=== PATIENT | female | born 1990 | race Caucasian/White ===

== ENCOUNTER 2019-07-11 15:12 | Emergency (ER) | payer OTHER, SELFPAY ==
[2019-07-11 15:19] VITALS: BP 139/91; PULSE 108; RESP 20; TEMP 36.8; O2SAT 99
--- NOTE | 2019-07-11 15:24 | ED.URI ---
HPI - URI/Sore Throat General Chief Complaint: Upper Respiratory Infection Stated Complaint: Stomach Pain,Fever Source: patient Mode of arrival: ambulatory Limitations: no limitations History of Present Illness HPI Narrative: Patient is a 29-year-old female who presents with sore throat, body aches, fever, chills, cough, congestion and mild nausea x1 day. She reports taking Tylenol with limited relief. She denies vomiting or diarrhea, chest pain or shortness of breath. MD elicited complaint: sore throat Related Data Home Medications Medication Instructions Recorded Confirmed folic acid 20 mg capsule 20 mg PO DAILY 07/04/19 07/11/19 albuterol sulfate [ProAir HFA] 2 inh INHALATION DIRECTED 07/11/19 07/11/19 ergocalciferol (vitamin D2) 1,250 mcg PO DAILY 07/11/19 07/11/19 ipratropium-albuterol 3 ml INHALATION DIRECTED 07/11/19 07/11/19 methotrexate sodium 25 mg IM WEEKLY 07/11/19 07/11/19 norgestimate-ethinyl estradiol 1 tablet PO DAILY 07/11/19 07/11/19 [Estarylla] Allergies Allergy/AdvReac Type Severity Reaction Status Date / Time hepatitis B virus vaccine Allergy Intermediate Anaphylactic Verified 07/11/19 15:38 Shock morphine AdvReac Severe Other Verified 07/08/19 08:51 Review of Systems Review of Systems: Narrative: CONSTITUTIONAL: Denies fever, chills, or sweats. EYES: Denies visual changes, redness, or discharge. ENT: Denies rhinorrhea, congestion, or otalgia. Reports sore throat CARDIOVASCULAR: Denies chest pain, palpitations, or edema. RESPIRATORY: Reports cough, denies dyspnea. GASTROINTESTINAL: Denies abdominal pain, vomiting, or diarrhea. Reports nausea GENITOURINARY: Denies dysuria or hematuria. SKIN: Denies rash or itching. MUSCULOSKELETAL: Denies back pain, joint pain, or myalgia. NEUROLOGIC: Denies headache, numbness, dizziness, or weakness. PSYCHIATRIC: Denies anxiety or depression. FORMERLY [facility] Surgical History Surgical History H/O knee surgery 2007 H/O removal of cyst on back H/O tubal ligation 3 years ago History of x2 4,6 years ago Family History Family History Father Hypertension Mother Family history of malignant neoplasm of breast in first degree relative Social History Social History Second hand tobacco smoke exposure: Yes Alcohol intake: never Exam Narrative: Exam Narrative: GENERAL: Well-appearing, well-nourished, and in no acute distress. HEAD: Normocephalic, atraumatic. EYES: EOMI. No redness or drainage. Conjunctiva are normal. ENT: Mucous membranes pink and moist. Nares clear. No rhinorrhea. TMs normal bilaterally. Throat pharyngeal edema and erythema, palatal petechiae, uvula midline. NECK: AROM. Supple. No lymphadenopathy. CHEST: No respiratory distress. Clear to auscultation. HEART: Regular rate and rhythm. No murmur appreciated. Normal peripheral pulses. GI: Soft, nontender without rebound, or guarding. No distention. Bowel sounds normal in all quadrants. NEURO: No focal deficits. Alert and oriented x3. Gait steady. PSYCH: Normal affect. No signs of depression or anxiety. Course Vital Signs Vital signs: Vital Signs Temperature 36.8 C 07/11/19 15:19 Pulse Rate 108 H 07/11/19 15:19 Respiratory Rate 07/11/19 15:19 Blood Pressure 139/91 H 07/11/19 15:19 Temperature 36.8 C 07/11/19 15:19 Pulse Rate 108 H 07/11/19 15:19 Respiratory Rate 07/11/19 15:19 Blood Pressure 139/91 H 07/11/19 15:19 Reviewed. Patient has been instructed to follow-up with her PCP regarding her blood pressure. Rapid strep negative, influenza negative MDM - URI/Sore Throat MDM Narrative Medical decision making narrative: Patient is most likely influenza, rapid influenza negative, however, patient requesting treatment because of history of lupus and immunocom
== END 2019-07-11 15:56 | disposition home or self-care (01) ==
PROVIDERS: Emergency Provider Nurse Practitioner
DX: R10.9 Unspecified abdominal pain (principal); J02.9 Acute pharyngitis, unspecified; R05 Cough; R50.9 Fever, unspecified
CPT/HCPCS: 87081; 87804; 87880; 99213; G0463

== ENCOUNTER 2019-07-13 02:17 | Emergency (ER) | payer OTHER, SELFPAY ==
--- NOTE | ~2019-07-13 | CT_ITS ---
EXAMINATION: CT abdomen pelvis w con DATE: 07/13/2019 04:08 INDICATION: Abdominal pain. Leukocytosis. TECHNIQUE: Computed tomography (CT) of the abdomen and pelvis was performed with 100 mL Omnipaque 350 intravenous contrast. Automated exposure control and iterative reconstruction technique were employe d. The dose-length product was 1255.66 mGy-cm. COMPARISON: CT abdomen and pelvis 07/20/2017, 02/19/17 FINDINGS: The visualized portions of the lung bases are clear without pneumonia or pleural effusion. The heart size is normal. No pericardial effusion. There is a diffuse hepatic steatosis. There is a 2 .6 x 2.0 cm hyperdense mass in right hepatic lobe. The gallbladder, spleen, pancreas, adrenal glands, and right kidney are normal. There is a 1 mm stone in left kidney. There are no dilated loops of bow el. The appendix is normal. There are no pathologically enlarged lymph nodes. There is no free intrap eritoneal fluid. The bones are unremarkable. IMPRESSION: 1. 2.6 x 2.0 cm hyperdense mass in right hepatic lobe, stable from 02/19/2017, likely a benign mass miller ch as focal nodular hyperplasia, hemangioma, or adenoma. 2. Diffuse hepatic steatosis. Reviewed, dictated and finalized at location A. L TILE SETTER IMPRESSION: 1. 2.6 x 2.0 cm hyperdense mass in right hepatic lobe, stable from 02/19/2017, l ikely a benign mass such as focal nodular hyperplasia, hemangioma, or adenoma. 2. Diffuse hepatic steatosis.
[2019-07-13 02:23] VITALS: BP 143/91; PULSE 86; RESP 20; TEMP 36.9; O2SAT 97
--- NOTE | 2019-07-13 02:34 | ED.GENADULT ---
HPI - General Adult General Chief complaint: Nausea/Vomiting/Diarrhea Stated complaint: n/v/d-on tamiflu- flu _ Time Seen by Provider: 07/13/19 02:34 Source: patient Mode of arrival: ambulatory Limitations: no limitations History of Present Illness HPI narrative: Patient is a 29-year-old female who presents for evaluation of vomiting, abdominal cramping and diarrhea. Patient reports the onset of abdominal pain earlier this afternoon, now reports severe cramping pain and blood present in her stool. No dark or tarry stool. She denies fever. Patient recently diagnosed with influenza and has been taking Tamiflu. Patient reports mild, aching headache, reports feeling weak and dizzy after nearly passing out while vomiting today. She denies any chest pain or shortness of breath, no loss of consciousness. Patient denies dysuria, hematuria, urinary frequency. She has history of tubal ligation, states she does not believe she is . No one at home has similar symptoms. No recent food indiscretions Related Data Home Medications Medication Instructions Recorded Confirmed folic acid 20 mg capsule 20 mg PO DAILY 07/04/19 07/11/19 albuterol sulfate [ProAir HFA] 2 inh INHALATION DIRECTED 07/11/19 07/11/19 ergocalciferol (vitamin D2) 1,250 mcg PO DAILY 07/11/19 07/11/19 ipratropium-albuterol 3 ml INHALATION DIRECTED 07/11/19 07/11/19 methotrexate sodium 25 mg IM WEEKLY 07/11/19 07/11/19 norgestimate-ethinyl estradiol 1 tablet PO DAILY 07/11/19 07/11/19 [Estarylla] Allergies Allergy/AdvReac Type Severity Reaction Status Date / Time hepatitis B virus vaccine Allergy Intermediate Anaphylactic Verified 07/11/19 15:38 Shock morphine AdvReac Severe Other Verified 07/08/19 08:51 Review of Systems Review of Systems: Narrative: CONSTITUTIONAL: Denies fever, chills, or sweats. EYES: Denies visual changes, redness, or discharge. ENT: Denies rhinorrhea, congestion, sore throat, or otalgia. CARDIOVASCULAR: Denies chest pain, palpitations, or edema. RESPIRATORY: Denies cough or dyspnea. GASTROINTESTINAL: Reports abdominal pain, nausea, vomiting, diarrhea GENITOURINARY: Denies dysuria or hematuria. SKIN: Denies rash or itching. MUSCULOSKELETAL: Denies back pain, joint pain, or myalgia. NEUROLOGIC: Reports headache, reports feeling weak, denies numbness PMFSH Surgical History Surgical History H/O knee surgery 2007 H/O removal of cyst on back H/O tubal ligation 3 years ago History of x2 4,6 years ago Family History Family History Father Hypertension Mother Family history of malignant neoplasm of breast in first degree relative Social History Social History Second hand tobacco smoke exposure: Yes Alcohol intake: never Gender identity (if verbalized by the patient): Female Exam Narrative: Exam Narrative: GENERAL: Awake, alert, conversant, standing upright in the room, leaning on bed HEAD: Normocephalic, atraumatic. EYES: PERRLA and EOMI. ENT: Nares clear, no rhinorrhea or epistaxis. Mucous membranes dry. NECK: Supple. CHEST: Clear to auscultation. No respiratory distress. HEART: Regular rate and rhythm. No murmur heard. Normal peripheral pulses. ABDOMEN: Soft, diffusely tender, no rebound, nonrigid, no guarding, nondistended, decreased bowel sounds. No flank tenderness. EXTREMITIES: Normal range of motion. No edema. SKIN: Warm, dry, no rash. NEURO:No focal deficits. Alert and oriented x3. EOMs intact without nystagmus. No facial droop/asymmetry noted bilaterally. Grimace intact. Intact sensation in face. Hearing intact bilaterally. Shoulder shrug intact. Strength 5/5 bilateral upper extremities. Strength 5/5 bilateral lower extremities. Reflexes 2+ patellar. Ambulatory with a narrow base, steady gait, requires no assistance or support
[2019-07-13] MEDS: SODIUM CHLORIDE 0.9% IV 2,000 ML 999 ML IV CONT (02:59)
[2019-07-13] MEDS: ONDANSETRON INJ 4 MG/2 ML VIAL IV PUSH (03:00)
[2019-07-13 03:05] LABS: Basophils Absolute Auto 0.1 K/mm3 (0.0-0.1); Basophils Percent Auto 0.4 % (0.2-1.2); Eosinophils Absolute Auto 0.1 K/mm3 (0-0.3); Eosinophils Percent Auto 0.3 % (0-4.4); Hematocrit 40.1 % (37.0-47.0); Hemoglobin 12.9 g/dL (12.0-15.0); Immature Granulocyte Absolute 0.11 K/mm3 (0.00-0.031); Immature Granulocyte Percent A 0.6 % (0-0.5); Lymphocytes Absolute Auto 2.78 K/mm3 (0.9-3.2); Lymphocytes Percent Auto 14.6 % (18.3-44.2); Mean Corpuscular HGB Conc 32.2 g/dl (32-36); Mean Corpuscular Hemoglobin 25.4 pg (26-34); Mean Corpuscular Volume 78.9 fl (80-100); Mean Platelet Volume 8.8 fl (7.4-10.4); Monocytes Percent Auto 5.4 % (2.6-8.5); Neutrophils Absolute Auto 14.9 K/mm3 (1.3-6.7); Neutrophils Percent Auto 78.7 % (45.5-73.1); Platelet Count Result 417 k/mm3 (150-375); Red Blood Count 5.08 M/mm3 (4.2-5.4); Red Cell Distribution Width 15.3 % (11.5-14.5)
[2019-07-13 03:16] LABS: Alanine Aminotransferase 29 U/L (4-35); Alkaline Phosphatase 121 U/L (38-126); Aspartate Amino Transferase 28 U/L (14-36); Bilirubin,Total 0.3 mg/dL (0.2-1.3); Blood Urea Nitrogen 11 mg/dL (7-17); Calcium 8.9 mg/dL (8.4-10.2); Carbon Dioxide 22 mmol/L (22-30); Chloride 101 mmol/L (98-107); Estimated CRCL calculation 111 ml/min; Estimated Glomerular Filt Rate > 60; Glucose 125 mg/dL (65-105); Lipase 116 U/L (23-300); Sodium 138 mmol/L (137-145)
[2019-07-13] MEDS: DICYCLOMINE HCL INJ 20 MG/2 ML VIAL IM (03:51)
[2019-07-13] MEDS: METOCLOPRAMIDE HCL 10 MG TABLET PO (04:55)
[2019-07-13 04:56] VITALS: BP 125/80; PULSE 80; RESP 16; O2SAT 100
--- NOTE | 2019-07-19 01:29 | PC.NURSE ---
LATE ENTRY This note is being entered to document information to the patient's record. The following information was omitted on [07/13/2019], ns stop time [id number] by [hari davies].
== END 2019-07-13 04:57 | disposition home or self-care (01) ==
PROVIDERS: Emergency Provider Emergency Medicine
DX: K52.9 Noninfective gastroenteritis and colitis, unspecified (principal); E86.0 Dehydration; Z77.22 Contact with and (suspected) exposure to environmental tobacco smoke (acute) (chronic)
CPT/HCPCS: 36415; 74177; 80053; 81025; 83690; 85025; 96361; 96372; 96374; 99284; A9270; J0500; J2405; J7030; Q9967

== ENCOUNTER 2019-07-29 07:11 | Outpatient (CLI) | payer OTHER, SELFPAY ==
--- NOTE | ~2019-07-29 | MR_ITS ---
EXAMINATION: MR chest wo/w con DATE: 07/29/2019 08:53 INDICATION: Left chest wall mass. TECHNIQUE: Magnetic resonance imaging (MRI) of the chest was performed without and with 20 mL MultiHa nce intravenous contrast. Sequences included axial STIR FSE, axial T1-weighted FSE, axial T1-weighted FS FSE, sagittal T1-weighted FSE, sagittal STIR FSE, coronal T1-weighted FSE, axial lava, coronal ST IR FSE, coronal lava flex, axial STIR FSE, and postcontrast axial and sagittal T1-weighted FS FSE. COMPARISON: Abdomen MRI 05/03/2015, CT abdomen and pelvis 07/13/2019 FINDINGS: There is a skin marker at the anterior body wall inferior to the left breast. There is no a bnormal subcutaneous mass. No lipoma. No rib fracture. IMPRESSION: 1. No abnormal mass in the patient's area of concern. Reviewed, dictated and finalized at location A.
[2019-07-29 07:49] LABS: Estimated Glomerular Filt Rate > 60
== END 2019-07-29 07:12 | disposition home or self-care (01) ==
PROVIDERS: Visit Provider Nurse Practitioner Family
DX: R19.02 Left upper quadrant abdominal swelling, mass and lump (principal)
CPT/HCPCS: 36415; 71552; A9577

== ENCOUNTER 2019-10-03 17:26 | Emergency (ER) | payer OTHER, SELFPAY ==
--- NOTE | 2019-10-03 17:34 | ED.EAR ---
HPI - Ear Problem General Chief complaint: Ear Stated complaint: ear pain Time Seen by Provider: 10/03/19 17:32 Source: patient and RN notes reviewed Mode of arrival: ambulatory Limitations: no limitations History of Present Illness HPI Narrative: 29-year-old female presents with concern for bilateral ear pain, worse on the left, nasal congestion. Reports history of frequent ear infections. Denies any medications for her symptoms. Denies fever, malaise, cough, shortness of breath MD Complaint: ear pain Related Data Home Medications Medication Instructions Recorded Confirmed folic acid 20 mg capsule 20 mg PO DAILY 07/04/19 10/03/19 albuterol sulfate [ProAir HFA] 2 inh INHALATION DIRECTED 07/11/19 10/03/19 methotrexate sodium 25 mg IM WEEKLY 07/11/19 10/03/19 Allergies Allergy/AdvReac Type Severity Reaction Status Date / Time hepatitis B virus vaccine Allergy Intermediate Anaphylactic Verified 10/03/19 17:29 Shock morphine AdvReac Severe Other Verified 10/03/19 17:29 Review of Systems Review of Systems: Narrative: CONSTITUTIONAL: Denies malaise, chills, sweats, or fever. EYES: Denies visual changes, redness, or discharge. ENT: Reports rhinorrhea, congestion, otalgia. Denies sinus pain, otalgia CARDIOVASCULAR: Denies chest pain, palpitations, or edema. RESPIRATORY: Denies cough or dyspnea. GASTROINTESTINAL: Denies abdominal pain, nausea, vomiting, diarrhea SKIN: Denies rash or itching. MUSCULOSKELETAL: Denies myalgia. NEUROLOGIC: Denies headache. All systems reviewed & are unremarkable except as noted in HPI and below PMFSH Social History Social History Second hand tobacco smoke exposure: Yes Alcohol intake: never Gender identity (if verbalized by the patient): Female Comments At time of signature, agree with nursing past medical, surgical, social and family history. There is no relevant family history pertinent to the presenting complaint Exam Narrative: Exam Narrative: GENERAL: Well-appearing, well-nourished, and in no acute distress. HEAD: Normocephalic EYES: PERRLA, conjunctivae clear ENT: Nares clear, turbinates edematous and erythematous, clear discharge. Mucous membranes moist. TM pearly richards with dull light reflex bilaterally; no tragal tenderness. Oropharynx not erythematous without lesions. Tonsils not enlarged and without exudate, no drooling, no hoarseness, no trismus, uvula midline. NECK: Supple. No lymphadenopathy CHEST: Clear to auscultation, breath sounds equal. No wheezing, rhonchi, rales, or stridor. No respiratory distress, speaks in full sentences. HEART: Regular rate and rhythm. No murmur heard. SKIN: Warm, dry, no rash. NEURO: Alert and oriented x3. PSYCH: Normal mood and affect Course Course Emergency Course: Patient is aware of diagnosis, understands and agrees to treatment plan. Anticipatory guidance given. Patient agrees to follow-up as directed and is aware of reasons to seek care at the emergency department. Portions of this record may have been created with voice recognition software Vital Signs Vital signs: Vital Signs Temperature 98.3 F 10/03/19 17:36 Pulse Rate 92 10/03/19 17:36 Respiratory Rate 16 10/03/19 17:36 Blood Pressure 134/82 10/03/19 17:36 Pulse Oximetry 100 10/03/19 17:36 Temperature 98.3 F 10/03/19 17:36 Pulse Rate 92 10/03/19 17:36 Respiratory Rate 16 10/03/19 17:36 Blood Pressure 134/82 10/03/19 17:36 Pulse Oximetry 100 10/03/19 17:36 Reviewed. Patient has been instructed to follow up with her primary care provider within the next week regarding her elevated blood pressure today. Medical Decision Making MDM Narrative Medical decision making narrative: Differential diagnosis considered: Strep pharyngitis, allergic rhinitis, upper respiratory tract infection, sinusitis, rhinosinusitis, nasopharyngitis. viral pharyngitis, otitis media, otitis externa, pneumonia,
[2019-10-03 17:36] VITALS: BP 134/82; PULSE 92; RESP 16; TEMP 36.8; O2SAT 100
== END 2019-10-03 17:45 | disposition home or self-care (01) ==
PROVIDERS: Emergency Provider Nurse Practitioner
DX: H92.03 Otalgia, bilateral (principal); J32.9 Chronic sinusitis, unspecified
CPT/HCPCS: 99213; G0463